=== PATIENT | female | born 2000 | race Hispanic/Latino ===

== ENCOUNTER 2018-09-11 03:26 | Emergency (ER) | payer MEDICAID, OTHER ==
[2018-09-11 04:11] LABS: BASOPHILS % (AUTO) 0.2 % (0.0-5.0); EOSINOPHILS % (AUTO) 2.2 % (0.0-8.0); HEMATOCRIT 41.8 % (36-48); LYMPHOCYTES % (AUTO) 26.3 % (21.0-51.0); MEAN CORPUSCULAR HEMOGLOBIN 31.7 pg (27.0-33.0); MEAN CORPUSCULAR HGB CONC 34.5 g/dL (32.0-36.0); MEAN CORPUSCULAR VOLUME 91.7 fL (80-100); MONOCYTES % (AUTO) 7.2 % (3.0-13.0); NEUTROPHILS % (AUTO) 64.1 % (40.0-77.0); PLATELET COUNT (AUTO) 358 K/uL (130-400); RED BLOOD CELL COUNT(AUTO) 4.55 MIL/uL (4.00-5.50); RED CELL DISTRIBUTION WIDTH 13.3 % (11.0-15.5); WHITE BLOOD COUNT (AUTO) 11.6 K/uL (4.8-10.8)
[2018-09-11 04:20] LABS: APPEARANCE,URINE Clear (CLEAR); BILIRUBIN,URINE Negative (NEGATIVE); COLOR,URINE Yellow (YELLOW); GLUCOSE, URINE (UA) Negative (NEGATIVE); KETONES,URINE Trace mg/dL (NEGATIVE); LEUKOCYTE ESTERASE ,URINE Small (NEGATIVE); NITRATE,URINE Negative (NEGATIVE); OCCULT BLOOD,URINE Trace (NEGATIVE); PROTEIN,URINE Negative (NEGATIVE)
[2018-09-11 04:21] LABS: CREATININE 0.7 mg/dL (0.5-1.5); POTASSIUM 3.7 mmol/L (3.5-5.1)
[2018-09-11 04:22] LABS: HCG,QUAL RESULT NEGATIVE (NEGATIVE)
[2018-09-11 04:26] LABS: ALBUMIN 4.1 g/dL (3.5-5.0); BILIRUBIN,TOTAL 0.4 mg/dL (0.2-1.0); TOTAL PROTEIN, SERUM 7.9 g/dL (6.0-8.3)
[2018-09-11 04:33] LABS: BACTERIA,URINE Moderate /HPF (None Seen); RBC,URINE 0-1 /HPF (0-1)
[2018-09-11] MEDS ORDERED: SULFAMETHOX-TMP DS 800/160 TAB ONE (04:45)
== END 2018-09-11 04:59 | disposition home or self-care (01) ==
LOC: EDH 03:26
DX: R30.0 Dysuria (principal); R10.9 Unspecified abdominal pain
CPT/HCPCS: 36415; 80053; 81001; 81025; 85025

== ENCOUNTER 2018-10-26 20:00 | Emergency (ER) | payer MEDICAID, OTHER ==
[2018-10-26 20:22] LABS: APPEARANCE,URINE Clear (CLEAR); BILIRUBIN,URINE Negative (NEGATIVE); COLOR,URINE Yellow (YELLOW); GLUCOSE, URINE (UA) Negative (NEGATIVE); KETONES,URINE Negative (NEGATIVE); LEUKOCYTE ESTERASE ,URINE Small (NEGATIVE); NITRATE,URINE Negative (NEGATIVE); OCCULT BLOOD,URINE Negative (NEGATIVE); PROTEIN,URINE Negative (NEGATIVE)
[2018-10-26 20:35] LABS: AMORPHOUS SEDIMENT,UR Moderate /LPF (None Seen); BACTERIA,URINE Few /HPF (None Seen); MUCUS,URINE Moderate LPF (None Seen); RBC,URINE None Seen /HPF (0-1)
[2018-10-26 20:37] LABS: TRICHOMONAS,URINE Moderate /LPF (None Seen)
== END 2018-10-26 20:55 | disposition home or self-care (01) ==
LOC: EDH 20:00
DX: O20.0 Threatened abortion (principal); Z3A.08 8 weeks gestation of pregnancy
CPT/HCPCS: 81001

== ENCOUNTER 2022-12-26 14:01 | Emergency (ER) | payer MEDICAID ==
[~2022-12-26] VITALS: Ht 165.1 cm; Wt 113.4 kg
[2022-12-26 14:05] VITALS: BP 145/97; PULSE 93; RESP 16
[2022-12-26 14:28] LABS: BASOPHILS % (AUTO) 0.6 % (0.0-5.0); EOSINOPHILS % (AUTO) 1.3 % (0.0-8.0); HEMATOCRIT 41.3 % (36-48); LYMPHOCYTES % (AUTO) 34.4 % (21.0-51.0); MEAN CORPUSCULAR HEMOGLOBIN 30.4 pg (27.0-33.0); MEAN CORPUSCULAR HGB CONC 33.9 g/dL (32.0-36.0); MEAN CORPUSCULAR VOLUME 89.6 fL (79-99); MONOCYTES % (AUTO) 8.3 % (3.0-13.0); NEUTROPHILS % (AUTO) 55.2 % (40.0-77.0); PLATELET COUNT (AUTO) 294 K/uL (130-400); RED BLOOD CELL COUNT(AUTO) 4.61 MIL/uL (4.00-5.50); RED CELL DISTRIBUTION WIDTH 11.9 % (11.0-15.5); WHITE BLOOD COUNT (AUTO) 8.2 K/uL (4.8-10.8)
[2022-12-26 14:35] LABS: CREATININE 0.7 mg/dL (0.5-1.5); POTASSIUM 3.9 mmol/L (3.5-5.1)
[2022-12-26 14:44] LABS: ALBUMIN 3.7 g/dL (3.5-5.0); TOTAL PROTEIN, SERUM 7.8 g/dL (6.0-8.3)
[2022-12-26] MEDS ORDERED: ACYC-138 PO (15:24)
[2022-12-26] MEDS ORDERED: GABA300C PO (15:24)
[2022-12-26] MEDS ORDERED: IBUP-2070 PO (15:24)
[2022-12-26] MEDS ORDERED: PRED20TA3 PO (15:24)
[2022-12-26] MEDS ORDERED: GABAPENTIN 300 MG CAPSULE PO SCH (15:30)
[2022-12-26] MEDS ORDERED: VALACYCLOVIR HCL 500 MG TABLET PO SCH (15:30)
[2022-12-26] MEDS ORDERED: HYDROCODONE/ACETAMINOPHEN 5/325 MG TAB PO ONE (15:30)
[2022-12-26] MEDS ORDERED: IBUPROFEN 600 MG TABLET PO ONE (15:30)
[2022-12-26] MEDS ORDERED: PREDNISONE 20 MG TABLET PO ONE (15:30)
[2022-12-26] MEDS ORDERED: ONDANSETRON ODT 4MG TAB SL ONE (15:30)
== END 2022-12-26 15:46 | disposition home or self-care (01) ==
LOC: EDH 14:01
DX: B02.9 Zoster without complications (principal); Z79.52 Long term (current) use of systemic steroids
CPT/HCPCS: 36415; 80053; 84484; 85025; 93005

== ENCOUNTER 2023-07-31 14:13 | Emergency (ER) | payer MEDICAID, OTHER ==
[~2023-07-31] VITALS: Ht 165.1 cm; Wt 102.1 kg
[~2023-07-31 14:13] MED LIST: ACYC-138 PO; GABA300C PO; IBUP-2070 PO; PRED20TA3 PO
[2023-07-31 14:54] LABS: ADD UA MICROSCOPIC NO; APPEARANCE,URINE CLEAR (CLEAR); BILIRUBIN,URINE NEGATIVE (NEGATIVE); COLOR,URINE LIGHT-YELLOW (YELLOW); GLUCOSE, URINE (UA) NEGATIVE (NEGATIVE); KETONES,URINE NEGATIVE (NEGATIVE); LEUKOCYTE ESTERASE ,URINE NEGATIVE Leu/uL (NEGATIVE); NITRATE,URINE NEGATIVE (NEGATIVE); OCCULT BLOOD,URINE NEGATIVE (NEGATIVE); PH,URINE 6.5 (5.0-8.0); PROTEIN,URINE NEGATIVE (NEGATIVE); UROBILINOGEN,URINE 0.2 mg/dL (0.2-1.0)
[2023-07-31 16:02] LABS: BASOPHILS # (AUTO) 0.04 K/uL (0.00-0.20); BASOPHILS % (AUTO) 0.4 % (0.0-5.0); HEMATOCRIT 40.6 % (36-48); IMMATURE GRANULOCYTE ABSOLUTE 0.03 K/uL (0-1); LYMPHOCYTES # (AUTO) 2.7 K/uL (1.0-4.8); LYMPHOCYTES % (AUTO) 26.5 % (21.0-51.0); MEAN CORPUSCULAR HEMOGLOBIN 31.1 pg (27.0-33.0); MEAN CORPUSCULAR VOLUME 88.8 fL (79-99); MONOCYTES # (AUTO) 0.7 K/uL (0.1-1.0); MONOCYTES % (AUTO) 7.2 % (3.0-13.0); NEUTROPHILS # (AUTO) 6.6 K/uL (1.8-7.7); NEUTROPHILS % (AUTO) 64.6 % (40.0-77.0); PLATELET COUNT (AUTO) 323 K/uL (130-400); RED BLOOD CELL COUNT(AUTO) 4.57 MIL/uL (4.00-5.50); RED CELL DISTRIBUTION WIDTH 12.1 % (11.0-15.5); WHITE BLOOD COUNT (AUTO) 10.2 K/uL (4.8-10.8)
[2023-07-31 16:12] LABS: CREATININE 0.7 mg/dL (0.5-1.5); POTASSIUM 3.6 mmol/L (3.5-5.1)
[2023-07-31 16:39] LABS: ALBUMIN 3.9 g/dL (3.5-5.0); BILIRUBIN,TOTAL 0.3 mg/dL (0.2-1.0); TOTAL PROTEIN, SERUM 7.9 g/dL (6.0-8.3)
[2023-07-31] MEDS: ONDANSETRON ODT 4MG TAB SL ONE (17:02)
[2023-07-31] MEDS: ACETAMINOPHEN 500 MG TABLET PO ONE (17:02)
[2023-07-31 17:48] VITALS: TEMP 98.8
[2023-07-31 19:41] VITALS: BP 135/86; PULSE 85; RESP 18; O2SAT 100
== END 2023-07-31 19:44 | disposition home or self-care (01) ==
LOC: EDH 14:13
DX: O20.9 Hemorrhage in early pregnancy, unspecified (principal); O20.0 Threatened abortion; Z3A.01 Less than 8 weeks gestation of pregnancy; Z79.899 Other long term (current) drug therapy; Z98.890 Other specified postprocedural states
CPT/HCPCS: 36415; 76801; 80053; 81003; 83690; 84702; 85025

== ENCOUNTER 2023-09-16 16:18 | Emergency (ER) | payer OTHER ==
[~2023-09-16] VITALS: Ht 165.1 cm; Wt 104.3 kg
[2023-09-16 16:52] LABS: BASOPHILS # (AUTO) 0.02 K/uL (0.00-0.20); BASOPHILS % (AUTO) 0.2 % (0.0-5.0); EOSINOPHILS # (AUTO) 0.08 K/uL (0.00-0.70); EOSINOPHILS % (AUTO) 0.8 % (0.0-8.0); HEMATOCRIT 39.3 % (36-48); IMMATURE GRANULOCYTE ABSOLUTE 0.02 K/uL (0-1); MEAN CORPUSCULAR HEMOGLOBIN 30.9 pg (27.0-33.0); MEAN CORPUSCULAR HGB CONC 35.1 g/dL (32.0-36.0); MEAN CORPUSCULAR VOLUME 88.1 fL (79-99); MONOCYTES # (AUTO) 0.5 K/uL (0.1-1.0); MONOCYTES % (AUTO) 4.9 % (3.0-13.0); NEUTROPHILS % (AUTO) 72.9 % (40.0-77.0); PLATELET COUNT (AUTO) 70 K/uL (130-400); RED BLOOD CELL COUNT(AUTO) 4.46 MIL/uL (4.00-5.50); RED CELL DISTRIBUTION WIDTH 11.9 % (11.0-15.5); WHITE BLOOD COUNT (AUTO) 9.6 K/uL (4.8-10.8)
[2023-09-16 16:59] LABS: CREATININE 0.6 mg/dL (0.5-1.0); POTASSIUM 3.9 mmol/L (3.5-5.1)
[2023-09-16 17:33] LABS: ALBUMIN 3.1 g/dL (3.5-5.0); BILIRUBIN,TOTAL 0.4 mg/dL (0.2-1.0); TOTAL PROTEIN, SERUM 7.4 g/dL (6.0-8.3)
[2023-09-16 20:08] VITALS: BP 134/81; PULSE 92; RESP 18; O2SAT 98
[2023-09-16 20:11] LABS: APPEARANCE,URINE CLEAR (CLEAR); BILIRUBIN,URINE NEGATIVE (NEGATIVE); COLOR,URINE LIGHT-YELLOW (YELLOW); GLUCOSE, URINE (UA) NEGATIVE (NEGATIVE); KETONES,URINE 60 mg/dL (NEGATIVE); LEUKOCYTE ESTERASE ,URINE NEGATIVE Leu/uL (NEGATIVE); NITRATE,URINE NEGATIVE (NEGATIVE); OCCULT BLOOD,URINE NEGATIVE (NEGATIVE); PROTEIN,URINE NEGATIVE (NEGATIVE); UROBILINOGEN,URINE 0.2 mg/dL (0.2-1.0)
[2023-09-16 20:12] LABS: ADD UA MICROSCOPIC YES
[2023-09-16 20:13] LABS: MUCUS,URINE RARE LPF (None Seen); SQUAMOUS EPITHELIAL CELL,UR MOD /HPF (0-2)
== END 2023-09-16 21:47 | disposition home or self-care (01) ==
LOC: EDH 16:18
DX: O26.891 Other specified pregnancy related conditions, first trimester (principal); R10.2 Pelvic and perineal pain; O99.891 Other specified diseases and conditions complicating pregnancy; M54.50 Low back pain, unspecified; Z3A.12 12 weeks gestation of pregnancy; Z79.899 Other long term (current) drug therapy; Z98.890 Other specified postprocedural states
CPT/HCPCS: 36415; 76801; 80053; 81001; 84702; 85025

== ENCOUNTER 2024-05-22 13:03 | Emergency (ER) | payer MEDICAID ==
[~2024-05-22] VITALS: Ht 165.1 cm; Wt 113.4 kg
[2024-05-22 13:10] VITALS: BP 121/65; PULSE 84; RESP 20; TEMP 98.5; O2SAT 98
[2024-05-22] MEDS ORDERED: ACET-2079 PO (13:21)
[2024-05-22] MEDS ORDERED: CIPR500T10 PO (13:21)
[2024-05-22] MEDS ORDERED: SULF1TAB42 PO (13:21)
--- NOTE | 2024-05-22 13:22 | ERN ---
General Chief Complaint: Earache Stated Complaint: RIGHT EAR REDNESS AND SWELLING Time Seen by MD: 13:06 History of Present Illness Initial Comments 24-year-old female otherwise healthy who presents for right ear infection. 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 She noticed over the last couple of days she has had some redness and irritation and swelling to the area. No fevers or systemic symptoms. No trauma. Allergies: Coded Allergies: No Known Allergies (Unverified Allergy, Unknown, 12/26/22) Home Meds Active Scripts Gabapentin (Neurontin) 300 Mg Capsule, 300 MG PO TID PRN for PAIN, #30 CAP Prov:[facility] 12/26/22 Acyclovir (Acyclovir) 800 Mg Tablet, 800 MG PO QID for 10 Days, #40 TAB Prov:[facility]ZJOVITA [facility] 12/26/22 Prednisone (Prednisone) 20 Mg Tablet, 2 TAB PO DAILY for 5 Days, #10 TAB 0 Refills Prov:[facility]ZJOVITA [facility] 12/26/22 Ibuprofen (Ibuprofen) 600 Mg Tablet, 600 MG PO Q6H PRN for PAIN, #30 TAB Prov:JUAREZDONNYJOVITA [facility] 12/26/22 Past Medical History Past Medical History: No Pertinent History Past Surgical History: Family History Family History: Negative Social History Social History: Negative, Lives with family Female( History) LMP: May 22, 2024 : 4 Para: 3 Aborts: 1 ROS Dictation CONSTITUTIONAL: No chills, no fever, no weakness, no diaphoresis, no malaise. HEAD/FACE: No signs of trauma. EENT: Right ear pain and swelling RESPIRATORY: No cough, no orthopnea, no SOB, no stridor, no wheezing. CARDIOVASCULAR: No chest pain, no edema, no palpitations, no syncope. GASTROINTESTINAL/ABDOMINAL: No abdominal pain, no constipation, no diarrhea, no nausea, no vomiting. GENITOURINARY: No abnormal discharge, no dysuria, no frequent urination, no hematuria. No complaints of pain in the genitals. MUSCULOSKELETAL: No back pain, no gout, no joint pain, no joint swelling, no muscle pain, no muscle stiffness, no neck pain. INTEGUMENTARY: No change in color, no change in hair/nails, no dryness, no lesion, no lumps, no rash. NEUROLOGICAL/PSYCH: No anxiety, not depressed, no emotional problem, no headache, no numbness, no pre-existing deficit, no history of seizures, no tremors, no weakness. HEMATOLOGIC/LYMPHATIC: Not anemic, no history of blood clots, no apparent bleeding, no bruising, glands not swollen. All Systems Negative, Except as Noted. Physical Exam Physical Exam Dictation VITAL SIGNS: Reviewed. GENERAL APPEARANCE: Alert, oriented x3, no acute distress, obese. HEAD AND FACE: Non-traumatic. EYES: PERRL, pink conjunctivas, eyelid no trauma, anterior chamber clear. EARS: Erythema and tenderness the cartilage and pinna, the ear canal is clear and the TM is clear NOSE: No discharge, no bleeding. OROPHARYNX: Mouth normal, teeth no caries, tongue pink. Pharynx clear, no e rythema. Tonsils no exudates, no abscesses noted. Mucous membrane moist. NECK: Supple, non-tender, no thyromegaly, no masses, no JVD, no bruits. BREAST: Deferred. CHEST: No tenderness, no crepitus, no paradoxical movement, no retractions. LUNGS: Clear, well-ventilated, symmetric, no rales, no wheezing, no rhonchi, no stridor, good breath sounds bilaterally. HEART: Regular rate, regular rhythm, no murmur, no gallops. VASCULAR: No peripheral edema. ABDOMEN: Soft, positive bowel sounds, nondistended, no guarding, nontender, no rebound, no masses no hepatomegaly, no splenomegaly, no Pillai's sign, no hernias. RECTAL: Deferred. GENITAL: Deferred. NEUROLOGICAL: Normal speech, gross motor function intact, gross sensory function intact. MUSCULOSKELETAL: Neck nontender, full range of motion, back nontender, full range of motion. EXTREMITIES: Nontender, full range of motion. SKIN: Color pink, dry, no turgor, no rash, no lacerations, no abrasions, no contusions. LYMPHATICS: Deferred. MDM CC: Right ear pain Historian: Patient Comorbidities: None Limitations by social determinants of health: None Differential diagnosis: Perichondritis, otitis externa, SIRS sepsis Patient's vital signs are stable on clinical exam chest perichondritis. No obvious abscesses. She was stable vital signs no systemic symptoms. There is no indication for labs or studies at this time. Patient received Augmentin and Toradol in the ER. We will discharge with ciprofloxacin and Bactrim and recommend ENT follow up. Patient agrees with the plan. ED Course Orders Procedure Category Date Status Time Ketorolac PHA 05/22/24 In Process Tromethamine 15mg/Ml 13:30 Amox/Clav 875/125mg PHA 05/22/24 In Process Tab (Augmentin 875-1 13:30 Current Medications Medications (Trade) Dose Ordered Sig/Cruzito Route PRN Reason Start Time Stop Time Status Last Admin Dose Admin Amoxicillin/ Clavulanate Potassium (Augmentin 875-125 Tablet) 1 each ONCE ONCE PO 05/22/24 13:30 05/22/24 13:31 Ketorolac Tromethamine (toRADol) 15 mg ONCE ONCE IM 05/22/24 13:30 05/22/24 13:31 Vital Signs Date Time Temp Pulse Resp B/P (MAP) Pulse Ox O2 Delivery O2 Flow Rate FiO2 05/22/24 13:10 98.4 84 20 121/65 98 Room Air* 0 21 05/22/24 13:04 98.8 87 20 115/98 98 Room Air 0 DX & DISP Disposition: Discharge Departure Impression: Primary Impression: Perichondritis and chondritis of right pinna Condition: Stable Scripts Acetaminophen with Codeine (Acetaminophen-Cod #3 Tablet) 300 Mg-30 Mg Tablet 1 TAB PO Q6HPRN PRN for pain for 7 Days, #28 TAB 0 Refills Prov: HAI CRAFT DO 05/22/24 Sulfamethoxazole/Trimethoprim (Bactrim Ds Tablet) 800 Mg-160 Mg Tablet 1 TAB PO BID for 10 Days, #20 TAB 0 Refills Prov: HAI CRAFT DO 05/22/24 Ciprofloxacin HCl (Ciprofloxacin HCl) 500 Mg Tablet 1 TAB PO BID for 10 Days, #20 TAB 0 Refills Prov: HAI CRAFT DO 05/22/24 Additional Instructions: Your symptoms are consistent with perichondritis. This is an infection of the skin and tissue around the ear. I have prescribed two different antibiotics, ciprofloxacin and Bactrim. Take these both as prescribed for the full 10 days. I recommend he take 800 mg of ibuprofen up to 3 times a day for pain. This medication is [id number]. I have also prescribed Tylenol with codeine to use for significant pain. You can mix all of these medications. You may need to follow up with a ENT specialist. I have given you a referral to Dr. Karen Ervin. Please make an appointment. Return to the emergency department as needed. Referrals: NONE (PCP) HAI CRAFT DO May 22, 2024 13:22
[2024-05-22] MEDS: AMOX/CLAV 875/125MG TAB PO ONE (13:23)
[2024-05-22] MEDS: ketOROlac 15MG/ML VIAL (15MG/ML) IM ONE (13:23)
== END 2024-05-22 13:41 | disposition home or self-care (01) ==
LOC: EDH 13:03
DX: H61.001 Unspecified perichondritis of right external ear (principal); H61.031 Chondritis of right external ear; Z79.52 Long term (current) use of systemic steroids; Z98.890 Other specified postprocedural states
CPT/HCPCS: 99283; 96372; J1885

== ENCOUNTER 2024-11-30 17:50 | Emergency (ER) | payer MEDICAID ==
[~2024-11-30] VITALS: Ht 165.1 cm; Wt 101.6 kg
[~2024-11-30 17:50] MED LIST changes: +ACET-2079 PO; +CIPR-514 PO; +SULF1TAB42 PO
[2024-11-30 19:47] LABS: BASOPHILS # (AUTO) 0.04 K/uL (0.00-0.20); BASOPHILS % (AUTO) 0.3 % (0.0-5.0); EOSINOPHILS # (AUTO) 0.07 K/uL (0.00-0.70); EOSINOPHILS % (AUTO) 0.6 % (0.0-8.0); HEMATOCRIT 41.9 % (36-48); IMMATURE GRANULOCYTE ABSOLUTE 0.05 K/uL (0-1); LYMPHOCYTES # (AUTO) 3.3 K/uL (1.0-4.8); MEAN CORPUSCULAR HGB CONC 33.2 g/dL (32.0-36.0); MEAN CORPUSCULAR VOLUME 93.3 fL (79-99); MONOCYTES % (AUTO) 7.9 % (3.0-13.0); NEUTROPHILS # (AUTO) 7.7 K/uL (1.8-7.7); NEUTROPHILS % (AUTO) 63.8 % (40.0-77.0); PLATELET COUNT (AUTO) 341 K/uL (130-400); RED BLOOD CELL COUNT(AUTO) 4.49 MIL/uL (4.00-5.50); RED CELL DISTRIBUTION WIDTH 12.4 % (11.0-15.5); WHITE BLOOD COUNT (AUTO) 12.1 K/uL (4.8-10.8)
[2024-11-30 19:54] LABS: CREATININE 0.7 mg/dL (0.5-1.0); POTASSIUM 3.9 mmol/L (3.5-5.1)
[2024-11-30 20:05] VITALS: BP 135/90; PULSE 70; RESP 16; TEMP 98.1; O2SAT 98
[2024-11-30 20:32] LABS: APPEARANCE,URINE CLOUDY (CLEAR); BILIRUBIN,URINE NEGATIVE (NEGATIVE); COLOR,URINE YELLOW (YELLOW); GLUCOSE, URINE (UA) NEGATIVE (NEGATIVE); KETONES,URINE NEGATIVE (NEGATIVE); LEUKOCYTE ESTERASE ,URINE 500 Leu/uL (NEGATIVE); NITRATE,URINE NEGATIVE (NEGATIVE); OCCULT BLOOD,URINE NEGATIVE (NEGATIVE); PROTEIN,URINE 20 mg/dL (NEGATIVE); UROBILINOGEN,URINE 0.2 mg/dL (0.2-1.0)
[2024-11-30 20:34] LABS: ADD UA MICROSCOPIC YES
[2024-11-30] MEDS ORDERED: CEPH500B PO (20:41)
[2024-11-30] MEDS ORDERED: cefTRIAXone 1G VIAL IVPB STA (20:41)
--- NOTE | 2024-11-30 20:42 | ERN ---
ED Note History of Present Illness Stated Complaint: SEVERE BACK PAIN FOR TWO DAYS Chief Complaint: Back Pain-No Injury Time Seen by MD: 17:52 Time Seen by Midlevel: 17:56 Dictation: 24-year-old with no past medical history coming in complaining of lower back pain, cramping, and lower abdominal pain. Denies any fever, vomiting or diarrhea. Allergies: Coded Allergies: No Known Allergies (Unverified Allergy, Unknown, 12/26/22) Home Meds Active Scripts Cephalexin Monohydrate (Keflex) 500 Mg Cap, 500 MG PO QID for 7 Days, #28 CAP Prov:CHRISTIANA JIMENEZ [employer] 11/30/24 Acetaminophen with Codeine (Acetaminophen-Cod #3 Tablet) 300 Mg-30 Mg Tablet, 1 TAB PO Q6HPRN PRN for pain for 7 Days, #28 TAB 0 Refills Prov:HAI CRAFT DO 05/22/24 Sulfamethoxazole/Trimethoprim (Bactrim Ds Tablet) 800 Mg-160 Mg Tablet, 1 TAB PO BID for 10 Days, #20 TAB 0 Refills Prov:HAI CRAFT DO 05/22/24 Ciprofloxacin HCl (Ciprofloxacin HCl) 500 Mg Tablet, 1 TAB PO BID for 10 Days, #20 TAB 0 Refills Prov:HAI CRAFT DO 05/22/24 Gabapentin (Neurontin) 300 Mg Capsule, 300 MG PO TID PRN for PAIN, #30 CAP Prov:[facility]ITA [facility] 12/26/22 Acyclovir (Acyclovir) 800 Mg Tablet, 800 MG PO QID for 10 Days, #40 TAB Prov:JOVITA [facility] 12/26/22 Prednisone (Prednisone) 20 Mg Tablet, 2 TAB PO DAILY for 5 Days, #10 TAB 0 Refills Prov:JOVITA [facility] 12/26/22 Ibuprofen (Ibuprofen) 600 Mg Tablet, 600 MG PO Q6H PRN for PAIN, #30 TAB Prov:JOVITA [facility] 12/26/22 Past Medical History Past Medical History: No Pertinent History Surgical History: Family History: Negative Social History: Negative, Lives with family LMP: Nov 08, 2024 : 4 Para: 3 Aborts: 1 Review of System Dictation Constitutional: Negative for fever,chills, and weight loss Eyes: Negative for injury, pain,redness, and discharge ENT: Negative for injury,pain or swelling Cardiovascular: Negative for chest pain, palpitations, and edema Respiratory: Negative for shortness of breath, cough, and wheezing, Abdomen/GI: Lower abdominal pain and back pain, cramping Back: Negative for injury and pain : Negative for injury, bleeding and discharge MS/Extremity: Negative for injury and deformity Skin: Negative for rash, and discoloration Neuro: Negative for headache, weakness, numbness, tingling, and seizure Psych: Negative for suicide ideation, homicidal ideation, and hallucinations Review of Systems: was completed Initial Vital Sign VS Vital Signs Date Time Temp Pulse Resp B/P (MAP) Pulse Ox O2 Delivery O2 Flow Rate FiO2 11/30/24 17:56 97.9 71 16 139/94 99 Room Air 0 11/30/24 20:05 21 Physical Exam Dictation General: awake, alert, NAD Head/Face: Normocephalic, atraumatic Eyes: PERRL, EOMI, vision at baseline ENT: oral cavity clear, TMs clear, no signs of infection Neck: Trachea midline, supple, no nuchal rigidity Cardiovascular: RRR, normal S1/S2, No MRGs, no JVD Respiratory: CTAB, no respiratory distress, No rales or wheezes Abdomen: Soft, non-tender, non-distended, normal bowel sounds, no guarding or rebound. Skin: Warm, dry, normal turgor, no rash MS/Extremity: Pulses equal, no cyanosis, neurovascular intact, FROM Neuro: COAx4, GCS 15, strength 5/5, CN 2-12 intact, normal cerebellar exam, normal gait, Psych: Normal behavior, mood, and affect normal Results (Laboratory/Radiology) Laboratory/Radiology Laboratory Tests Test 11/30/24 19:18 11/30/24 20:03 White Blood Count 12.1 K/uL (4.8-10.8) H Red Blood Count 4.49 MIL/uL (4.00-5.50) Hemoglobin 13.9 g/dL (12.0-16.0) Hematocrit 41.9 % (36-48) Mean Corpuscular Volume 93.3 fL (79-99) Mean Corpuscular Hemoglobin 31.0 pg (27.0-33.0) Mean Corpuscular Hemoglobin Concent 33.2 g/dL (32.0-36.0) Red Cell Distribution Width 12.4 % (11.0-15.5) Platelet Count 341 K/uL (130-400) Mean Platelet Volume 10.0 fL (7.5-10.5) Immature Granulocyte % (Auto) 0.4 % (0-1) Neutrophils (%) (Auto) 63.8 % (40.0-77.0) Lymphocytes (%) (Auto) 27.0 % (21.0-51.0) Monocytes (%) (Auto) 7.9 % (3.0-13.0) Eosinophils (%) (Auto) 0.6 % (0.0-8.0) Basophils (%) (Auto) 0.3 % (0.0-5.0) Neutrophils # (Auto) 7.7 K/uL (1.8-7.7) Lymphocytes # (Auto) 3.3 K/uL (1.0-4.8) Monocytes # (Auto) 1.0 K/uL (0.1-1.0) Eosinophils # (Auto) 0.07 K/uL (0.00-0.70) Basophils # (Auto) 0.04 K/uL (0.00-0.20) Absolute Immature Granulocyte (auto 0.05 K/uL (0-1) Nucleated Red Blood Cells 0.0 % (0.0-0.19) Sodium Level 141 mmol/L (136-145) Potassium Level 3.9 mmol/L (3.5-5.1) Chloride Level 103 mmol/L (101-111) Carbon Dioxide Level 30 mmol/L (21-32) Blood Urea Nitrogen 12 mg/dL (7-18) Creatinine 0.7 mg/dL (0.5-1.0) Glomerular Filtration Rate Calc 122 mL/min (>90) Random Glucose 97 mg/dL (70-105) Total Calcium 9.6 mg/dL (8.5-10.1) Human Chorionic Gonadotropin, Quant 0 mIU/mL (0-5) Urine Color YELLOW (YELLOW) Urine Appearance CLOUDY (CLEAR) H Urine pH 6.0 (5.0-8.0) Urine Specific Denio 1.028 (1.001-1.031) Urine Protein 20 mg/dL (NEGATIVE) H Urine Glucose (UA) NEGATIVE mg/dL (NEGATIVE) Urine Ketones NEGATIVE mg/dL (NEGATIVE) Urine Occult Blood NEGATIVE (NEGATIVE) Urine Nitrate NEGATIVE (NEGATIVE) Urine Bilirubin NEGATIVE mg/dL (NEGATIVE) Urine Urobilinogen 0.2 mg/dL (0.2-1.0) Urine Leukocyte Esterase 500 Gia/uL (NEGATIVE) H Urine RBC 6-10 /HPF (0-1) H Urine WBC 51-100 /HPF (0-1) H Urine Squamous Epithelial Cells FEW /HPF (0-2) Urine Calcium Oxalate Crystals MANY /LPF (None Seen) Urine Bacteria None /HPF (None Seen) Labs Reviewed?: Yes ED Course ED Course Orders Procedure Category Date Status Time Cbc With Differential LAB 11/30/24 Complete 18:21 Basic Metabolic Panel LAB 11/30/24 Complete 18:21 Urinalysis Profile LAB 11/30/24 Complete 18:21 Hcg,Quantitative LAB 11/30/24 Complete 18:21 Ceftriaxone 1g Vial PHA 11/30/24 Complete (Rocephine 1g Inj) 20:41 Culture Urine DELVIN 11/30/24 In Process 20:42 Current Medications Medications (Trade) Dose Ordered Sig/Cruzito Route PRN Reason Start Time Stop Time Status Last Admin Dose Admin Ceftriaxone Sodium (ROCEphine 1G INJ) 1 gm ONCE STAT IVPB 11/30/24 20:41 11/30/24 20:44 DC Vital Signs Date Time Temp Pulse Resp B/P (MAP) Pulse Ox O2 Delivery O2 Flow Rate FiO2 11/30/24 20:05 98.1 70 16 135/90 98 Room Air* 0 21 11/30/24 17:56 97.9 71 16 139/94 99 Room Air 0 Medical Decision Making MDM MDM: 24-year-old with no past medical history coming in complaining of lower back pain, cramping, and lower abdominal pain. Denies any fever, vomiting or diarrhea.CBC shows leukocytosis of 12, no anemia, no thrombocytopenia. UA shows evidence of urinary tract infection with positive leuko esterase. Antibiotics will be given in the ER and a prescription will be given to be taken home. Educated patient to come back to the emergency room if she develops any flank pain, fever, nausea vomiting. Patient verbalized understanding, answered all questions. Differential diagnosis: Urinary tract infection, early , PMS Rationale: Tests considered and ordered secondary to shared decision making include: Previous outside records reviewed: Old ER visits. Risk of complication and/or morbidity or mortality of patient management: None Medications-Per medication reconciliation Need for hospitalization: Patient does not meet criteria for hospitalization. Need for emergency major/minor surgery: No There are no social concerns with this patient. Prescription drug management Prescriptions will include symptomatic care Patient's prior external medical records from other ER visits were reviewed by me as indicated. Prior testing and results from previous visits were reviewed. Prior tests were taken into account with medical decision making and resource utilization, independent historian/historians were used to obtain complete medical history. I independently interpreted the test that were performed, results were reviewed by me and considered findings on radiology if ordered. Medical management and examination interpretation discussions were had by me with other qualified healthcare professionals as indicated for the patient's care. DX & DISP Disposition: Discharge Departure Impression: Primary Impression: Pelvic cramping Additional Impression: Urinary tract infection Condition: Stable Scripts Cephalexin Monohydrate (Keflex) 500 Mg Cap 500 MG PO QID for 7 Days, #28 CAP Prov: CHRISTIANA JIMENEZ [employer] 11/30/24 Additional Instructions: Take antibiotics as prescribed. If you start to develop any flank pain, fever, nausea vomiting or diarrhea please return to the emergency room. Time of Disposition: 20:42 I have reviewed the case, and I agree with, Diagnosis and Plan CHRISTIANA JIMENEZ NP Nov 30, 2024 20:42 HAI CRAFT DO Nov 30, 2024 23:59
[2024-11-30 20:46] LABS: CALCIUM OXALATE CRYSTALS,UR MANY /LPF (None Seen); MUCUS,URINE RARE LPF (None Seen); SQUAMOUS EPITHELIAL CELL,UR FEW /HPF (0-2); WBC,URINE 51-100 /HPF (0-1)
== END 2024-11-30 20:49 | disposition home or self-care (01) ==
LOC: EDH 17:50
DX: R10.2 Pelvic and perineal pain (principal); N39.0 Urinary tract infection, site not specified; Z79.52 Long term (current) use of systemic steroids; Z79.899 Other long term (current) drug therapy
CPT/HCPCS: 36415; 80048; 81001; 84702; 85025; 87086; 87186; 99283